=== PATIENT | male | born 1995 | race Two or more races ===

== ENCOUNTER 2018-02-05 22:10 | Emergency (ER) | payer OTHER ==
[~2018-02-05] VITALS: Ht 190.5 cm; Wt 113.4 kg
[2018-02-05 22:10] VITALS: BP 148/85
--- NOTE | 2018-02-05 22:18 | ED.ADGEN ---
Adult General Chief Complaint Chief Complaint " I was using an air gun to blow dirt off some floor matts of the car yesterday.. and felt like I got a bunch of dust in my eyes.. after I slept on it.. they seemed to be more irritated now... especially on the right... " HPI HPI Patient is a 22 year old male who presents with above hx and complaints of bilateral conjunctivitis. Patient has all obvious rate lateral lower quadrant corneal abrasion/ulcer. Both conjunctiva is are injected. No changes in visual acuity in either eye. Extraocular muscles intact. No flare. No adenopathy. No obvious foreign body under the lid. Both eyes were irrigated with normal saline after applications of tetracaine. Patient apply erythromycin ointment small amount 4 times a day both eyes. Patient to avoid rubbing eyes. Patient may have Vicoprofen up 4 times a day for marked pain. Patient must follow-up with ophthalmology. Patient return if any increased pain, decreased vision or increased redness. She encouraged use eye protection and future. Patient's tetanus was updated last year. Patient normally follows at [facility]. Patient has no history immunosuppression. No history of travel. No history of specific ill contacts. Review of Systems Review of Systems Constitutional: Denies fever or chills [] Eyes: Denies change in visual acuity, redness, or eye pain [] HENT: Denies nasal congestion or sore throat [] Respiratory: Denies cough or shortness of breath [] Cardiovascular: No additional information not addressed in HPI [] GI: Denies abdominal pain, nausea, vomiting, bloody stools or diarrhea [] : Denies dysuria or hematuria [] Musculoskeletal: Denies back pain or joint pain [] Integument: Denies rash or skin lesions [] Neurologic: Denies headache, focal weakness or sensory changes [] Endocrine: Denies polyuria or polydipsia [] All other systems were reviewed and found to be within normal limits, except as documented in this note. Family History Family History Noncontributory Current Medications Current Medications Current Medications Medications (Trade) Dose Ordered Sig/Rafael Start Time Stop Time Status Last Admin Dose Admin Erythromycin (Romycin) 0.25 inch 1X ONCE 02/05/18 23:00 02/05/18 23:01 DC 02/05/18 22:48 0.25 INCH Fluorescein Sodium (Ful-Mansi 1mg) 1 strip STK-MED ONCE 02/05/18 22:23 02/05/18 22:24 DC Hydrocodone Bitartrate/ Ibuprofen (Vicoprofen 7.5-200) 2 tab 1X ONCE 02/05/18 23:00 02/05/18 23:01 DC 02/05/18 22:47 2 TAB Tetracaine HCl (Tetracaine) 40 drop STK-MED ONCE 02/05/18 22:23 02/05/18 22:24 DC Allergies Allergies Allergies Coded Allergies Type Severity Reaction Last Updated Verified albuterol Adverse Reaction Intermediate 02/05/18 Yes Physical Exam Physical Exam Constitutional: Well developed, well nourished, moderate acute distress, non- toxic appearance. [] HENT: Normocephalic, atraumatic, bilateral external ears normal, oropharynx moist, no oral exudates, nose normal. [] Eyes: PERRLA, EOMI, conjunctiva checked, no discharge. [] Small corneal abrasion /ulcer right lower quadrant right eye. Limbus injection only in this area. Neck: Normal range of motion, no tenderness, supple, no stridor. [] Cardiovascular:Heart rate regular rhythm, no murmur [] Lungs & Thorax: Bilateral breath sounds clear to auscultation [] Abdomen: Bowel sounds normal, soft, no tenderness, no masses, no pulsatile masses. [] Skin: Warm, dry, no erythema, no rash. [] Back: No tenderness, no CVA tenderness. [] Extremities: No tenderness, no cyanosis, no clubbing, ROM intact, no edema. [] Neurologic: Alert and oriented X 3, normal motor function, normal sensory function, no focal deficits noted. [] Psychologic: Affect anxious, judgement normal, mood normal. [] Current Patient Data Vital Signs Vital Signs Date Time Temp Pulse Resp B/P (MAP) Pulse Ox O2 Delivery O2 Flow Rate FiO2 02/05/18 22:10 98.0 59 20 98 Room Air EKG EKG [] Radiology/Procedures Radiology/Procedures [] Course & Med Decision Making Course & Med Decision Making Pertinent Labs and Imaging studies reviewed. (See chart for details). Pt. to avoid rubbing eyes. Patient use erythromycin ointment 4 times a day to both eyes. Patient must have re-exam ophthalmology. Patient may take Vicoprofen up 4 times a day for pain. Must have follow-up. [] Final Impression Final Impression 1. Bilateral Conjunctivitis 2. Right eye corneal abrasion/ulcer[] Dragon Disclaimer Dragon Disclaimer This electronic medical record was generated, in whole or in part, using a voice recognition dictation system. WAYNE MANLEY MD February 05, 2018 22:18
[2018-02-05] MEDS ORDERED: FLUORESCEIN 1MG EYE STRIP. ONE (22:23)
[2018-02-05] MEDS ORDERED: TETRACAINE 0.5% OPHTH SOLUTION 4ML BOTTLE. ONE (22:23)
[2018-02-05] MEDS ORDERED: HYDR-79 PO (22:46)
[2018-02-05] MEDS ORDERED: ERYTHROMYCIN 0.5% OPHTH OINTMENT 1GM TUBE. OU ONE (23:00)
[2018-02-05] MEDS ORDERED: HYDROcodon/IBUPROFEN 7.5/200MG 1 TAB TABLET PO ONE (23:00)
== END 2018-02-05 22:57 | disposition home or self-care (01) ==
LOC: ER 22:10
DX: H10.89 Other conjunctivitis (principal); S05.01XA Injury of conjunctiva and corneal abrasion without foreign body, right eye, initial encounter; Z88.8 Allergy status to other drugs, medicaments and biological substances; X58.XXXA Exposure to other specified factors, initial encounter; Y93.89 Activity, other specified; Y99.8 Other external cause status; Y92.89 Other specified places as the place of occurrence of the external cause
CPT/HCPCS: 99283

== ENCOUNTER 2020-01-18 11:28 | Emergency (ER) | payer OTHER ==
[~2020-01-18] VITALS: Ht 190.5 cm; Wt 82.0 kg
[~2020-01-18 11:28] MED LIST: HYDR-1179 PO
[2020-01-18 11:30] VITALS: BP 148/85
[2020-01-18] MEDS ORDERED: FLUORESCEIN 1MG EYE STRIP. ONE (11:46)
[2020-01-18] MEDS ORDERED: TETRACAINE 0.5% OPHTH SOLUTION 4ML BOTTLE. ONE (11:46)
--- NOTE | 2020-01-18 11:53 | PHYS DOC ---
Past History Past Medical History: No Pertinent History Past Surgical History: Other Alcohol Use: None Drug Use: None General Adult EDM: Chief Complaint: EYE PROBLEMS HPI: HPI: 24-year-old male who denies any significant past medical history presents to the ED with complaints of right eye pain with increased tearing and photophobia for the past day. Patient states he works for [employer] yesterday he felt that dust blew in his eye, does recall scratching it but currently w/no foreign body sensation. States he is cut his eye before and this feels similar. Does not wear any contact lenses or glasses. Denies any vision impairment. ROS: Denies any associated fever, chills, vision loss, neurologic deficits, neck pain or stiffness, chest pain, cough, dyspnea, sore throat, nausea, vomiting, abdominal pain. Review of Systems: Review of Systems: Constitutional: Denies fever or chills Eyes: Denies change in visual acuity HENT: Denies nasal congestion or sore throat Respiratory: Denies cough or shortness of breath Cardiovascular: Denies chest pain or edema GI: Denies abdominal pain, nausea, vomiting, bloody stools or diarrhea : Denies dysuria Musculoskeletal: Denies back pain or joint pain Integument: Denies rash Neurologic: Denies headache, focal weakness or sensory changes Endocrine: Denies polyuria or polydipsia Lymphatic: Denies swollen glands Psychiatric: Denies depression or anxiety Current Medications: Current Meds: Current Medications Medications (Trade) Dose Ordered Sig/Rafael Start Time Stop Time Status Last Admin Dose Admin Fluorescein Sodium (Ful-Mansi 1mg) 1 strip STK-MED ONCE 01/18/20 11:46 01/18/20 11:46 DC Tetracaine HCl (Tetracaine) 40 drop STK-MED ONCE 01/18/20 11:46 01/18/20 11:46 DC Allergies: Allergies: Allergies Coded Allergies Type Severity Reaction Last Updated Verified albuterol Adverse Reaction Intermediate 02/05/18 Yes Physical Exam: PE: Constitutional: Well developed, well nourished, no acute distress, non-toxic appearance. [] HENT: Normocephalic, atraumatic, bilateral external ears normal, oropharynx moist, no oral exudates, nose normal. [] Eyes: PERRLA, EOMI,no discharge, both eyes anesthetized with tetracaine and evaluated with fluorescein and Wood's lamp, normal left eye, right eye with conjunctival injection, no ciliary flush, no foreign body, fluorescein uptake at 7:00 and 10 o'clock position right eye, no Layla sign, +tearing, tolerated gomez lamp exam Neck: Normal range of motion, no tenderness, supple, no stridor. [] Cardiovascular:Heart rate regular rhythm, no murmur [] Lungs & Thorax: Bilateral breath sounds clear to auscultation [] Abdomen: Bowel sounds normal, soft, no tenderness, no masses, no pulsatile masses. [] Skin: Warm, dry, no erythema, no rash. [] Back: No tenderness, no CVA tenderness. [] Extremities: No tenderness, no cyanosis, no clubbing, ROM intact, no edema. [] Neurologic: Alert and oriented X 3, normal motor function, normal sensory function, no focal deficits noted. [] Psychologic: Affect normal, judgement normal, mood normal. [] EKG: EKG: [] Radiology/Procedures: Radiology/Procedures: [] Impressions: Concern for right corneal abrasions x2, no foreign body or rust ring. No vision loss on exam. Patient afebrile and well-appearing. Was given written prescription for antibiotic eyedrops to cover [place]is. Did encourage ophthalmology follow-up outpatient. Strict ED return precautions for vision loss or fever. All of patient's questions were answered and he was stable at time of discharge. I spoken with the patient and her caregivers. I explained the patient's condition, diagnoses and treatment plan based on the information available to me at this time. I have answered the patient and her caregiver's questions and addressed any concerns. The patient and her caregivers have a good understanding of patient's diagnosis, condition and treatment plan as can be expected at this point. Vital signs have been stable. Patient's condition is stable and appropriate for discharge from the emergency department. Patient will pursue further outpatient evaluation with primary care physician or other designated or consulting physician as outlined in the discharge instructions. The patient and/or caregivers are agreeable to this plan of care and follow-up instructions have been explained in detail. The patient and/or ca regivers have received these instructions in written form and have expressed an understanding of the discharge instructions. The patient and/or caregivers are aware that any significant change of condition or worsening of symptoms should prompt immediate return to this or the closest emergency department or call to 911. Course & Med Decision Making: Course & Med Decision Making Pertinent Labs and Imaging studies reviewed. (See chart for details) [] Kellyon Disclaimer: Roby Disclaimer: This electronic medical record was generated, in whole or in part, using a voice recognition dictation system. Departure Departure: Impression: Primary Impression: Corneal abrasion, right Disposition: 01 HOME, SELF-CARE Condition: STABLE Referrals: PCP,UNKNOWN (PCP) Patient Instructions: Eye - Corneal Abrasion MAMI SOTO DO January 18, 2020 11:53
[2020-01-18] MEDS ORDERED: CIPR2.5D OD (12:19)
[2020-01-18] MEDS ORDERED: CIPR7.5D EACH EAR (12:19)
== END 2020-01-18 12:28 | disposition home or self-care (01) ==
LOC: ER 11:28
DX: S05.01XA Injury of conjunctiva and corneal abrasion without foreign body, right eye, initial encounter (principal); H53.141 Visual discomfort, right eye; Z88.8 Allergy status to other drugs, medicaments and biological substances; W18.39XA Other fall on same level, initial encounter; Y93.89 Activity, other specified; Y92.89 Other specified places as the place of occurrence of the external cause; Y99.0 Civilian activity done for income or pay
CPT/HCPCS: 99283